=== PATIENT | female | born 1985 | race Caucasian/White ===

== ENCOUNTER 2021-09-30 08:51 | Emergency (ER) | payer SELFPAY ==
[~2021-09-30] VITALS: Ht 154.9 cm; Wt 75.0 kg
[2021-09-30 09:05] VITALS: BP 118/82
[2021-09-30] MEDS ORDERED: IV RINGERS SOLUTION,LACTATED 1,000 ML IV ONE (09:45)
--- NOTE | 2021-09-30 09:47 | PHYS DOC ---
Past History Past Surgical History: , Hysterectomy General Adult EDM: Chief Complaint: SYNCOPE HPI: HPI: Patient is a 36-year-old female coming in for diarrhea x6 days. Patient states that she has few episodes of vomiting when it first started but has been having watery diarrhea throughout the day and decreased p.o. intake. Patient states she has passed out several times. Was at work today and states she felt like she was about to pass out. Patient does states she has passed out and fallen. Denies any known head injuries. Patient denies any recent travel, raw undercooked food, sick contacts, or antibiotic use. Review of Systems: Review of Systems: All other systems within normal limits except for as noted in the HPI Current Medications: Current Meds: Current Medications Medications (Trade) Dose Ordered Sig/Jovanni Start Time Stop Time Status Last Admin Dose Admin Lactated Ringer's 1,000 ml @ 1,000 mls/hr 1X ONCE 09/30/21 09:45 09/30/21 10:44 UNV Allergies: Allergies: Allergies Coded Allergies Type Severity Reaction Last Updated Verified iodine Allergy Unknown Swelling 09/30/21 Yes Physical Exam: PE: Constitutional: Well developed, well nourished, no acute distress, non-toxic appearance. [] HENT: Normocephalic, atraumatic, bilateral external ears normal, nose normal. [] Eyes: PERRLA, conjunctiva normal, no discharge. [] Neck: No rigidity, supple, no stridor. [] Cardiovascular: Regular rate and rhythm, brisk cap refill [] Lungs & Thorax: Non labored symmetric respirations, no tachypnea or respiratory distress [] Abdomen: Soft, nondistended, no tenderness palpation. Skin: Warm, dry, no erythema, no rash. [] Back: Unremarkable Extremities: No deformities, range of motion grossly intact, no lower extremity edema [] Neurologic: Alert and oriented X 3, no focal deficits noted. [] Psychologic: Affect normal, judgement normal, mood normal. [] Current Patient Data: Vital Signs: Vital Signs Date Time Temp Pulse Resp B/P (MAP) Pulse Ox O2 Delivery O2 Flow Rate FiO2 09/30/21 09:05 98.0 16 118/82 (94) 97 Room Air EKG: EKG: Sinus rhythm with left axis deviation. Lateral T wave flattening, no STEMI [] Radiology/Procedures: Radiology/Procedures: [][address] [address] IMAGING REPORT Signed PATIENT: EMY SAMUEL NACCOUNT: [id number] : 1985 LOCATION: ER AGE: 36 SEX: F EXAM STATUS: REG ER ORD. PHYSICIAN: EMY PATTERSON MD REASON: syncope PROCEDURE: CT HEAD WO CONTRAST CT brain without contrast. HISTORY: Syncope CT scan of the brain was done without contrast. Sinuses are clear. There is no skull fracture. Mastoids are normally aerated. There is no intracranial hemorrhage or subdural hematoma. There is no mass effect or shift of the midline. Ventricles are normal in size. An acute CVA is not identified. IMPRESSION: 1. No intracranial hemorrhage or acute finding noted. PQRS Compliance Statement: One or more of the following individualized dose reduction techniques were utilized for this examination: 1. Automated exposure control 2. Adjustment of the mA and/or kV according to patient size 3. Use of iterative reconstruction technique Electronically signed by: Kelvin Pearce MD (09/30/2021 10:35 AM) [id number] DICTATED AND SIGNED BY: KELVIN PEARCE MD DATE: 09/30/21 103 CC: EMY PATTERSON MD; PCP,NO ~ [address] [address] IMAGING REPORT Signed PATIENT: EMY SAMUEL NACCOUNT: [id number] : 1985 LOCATION: ER AGE: 36 SEX: F EXAM STATUS: REG ER ORD. PHYSICIAN: EMY PATTERSON MD REASON: syncope, diarrhea PROCEDURE: CT ABDOMEN PELVIS WO CONTRAST PQRS Compliance Statement: One or more of the following individualized dose reduction techniques were utilized for this examination: 1. Automated exposure control 2. Adjustment of the mA and/or kV according to patient size 3. Use of iterative reconstruction technique CT abdomen/pelvis without contrast 09/30/2021 10:30 AM INDICATION: Syncope, diarrhea COMPARISON: None available TECHNIQUE: Multiple axial CT images of the abdomen and pelvis were obtained without intravenous contrast. Coronal and sagittal reformats are provided. FINDINGS: Visualized portions of the lung bases are clear. Heart size is within normal limits. Evaluation of the solid abdominal viscera is limited by lack of intravenous contrast. No suspicious hepatic masses are identified. Diffuse hypoattenuation of the hepatic parenchyma suggestive of hepatic steatosis. Focal fatty sparing identified along the gallbladder fossa. Spleen, bilateral adrenal glands, and pancreas are normal in appearance. Gallbladder is present without adjacent inflammatory changes. The abdominal aorta is normal in course and caliber. There are no pathologically enlarged lymph nodes in the abdomen and pelvis. There is no abdominal free fluid. There is no free intraperitoneal air. The kidneys are relatively symmetric in appearance. There is no suspicious renal mass within the limitations of a noncontrast examination. There is no hydronephrosis. There are no calculi within the kidneys, ureters or urinary bladder. Small and large bowel are normal in caliber. There is no evidence for bowel obstruction. There are no pericolonic inflammatory changes. A normal, nondilated appendix is visualized without adjacent inflammatory changes. Uterus is normal by CT. Follicular changes are identified within the adnexa bilaterally. IMPRESSION: 1. Diffuse hepatic steatosis with focal fatty sparing along the gallbladder fossa. 2. No acute abnormality identified in abdomen and pelvis. 3. Follicular changes identified within the adnexa bilaterally. Electronically signed by: Jeff Pollack MD (09/30/2021 10:39 AM) [id number] DICTATED AND SIGNED BY: JEFF POLLACK MD DATE: 09/30/21 1036 CC: EMY PATTERSON MD; PCP,NO ~ Heart Score: C/O Chest Pain: No Risk Factors: Risk Factors: DM, Current or recent (<one month) smoker, HTN, HLP, family history of CAD, obesity. Risk Scores: Score 0 - 3: 2.5% MACE over next 6 weeks - Discharge Home Score 4 - 6: 20.3% MACE over next 6 weeks - Admit for Clinical Observation Score 7 - 10: 72.7% MACE over next 6 weeks - Early Invasive Strategies Course & Med Decision Making: Course & Med Decision Making Pertinent Labs and Imaging studies reviewed. (See chart for details) [] Dragon Disclaimer: Dragon Disclaimer: This electronic medical record was generated, in whole or in part, using a voice recognition dictation system. Departure Departure: Impression: Primary Impression: Diarrhea Disposition: HOME / SELF CARE / HOMELESS Condition: IMPROVED Referrals: PCP,SHAHRIAR (PCP) Patient Instructions: Diet for Diarrhea, Adult Additional Instructions: Follow-up with one of the primary care providers on the list provided for further evaluation of elevated blood sugar. Scripts Sulfamethoxazole/Trimethoprim (BACTRIM DS TABLET) 1 Each Tablet 1 TAB PO BID for antibiotic for 5 Days, #10 TAB 0 Refills Prov: EMY PATTERSON MD 09/30/21 EMY PATTERSON MD September 30, 2021 09:47
[2021-09-30 10:33] LABS: BASO % 1 % (0-3); EOS % 1 % (0-3); HEMATOCRIT 46.1 % (36.0-47.0); HEMOGLOBIN 15.8 g/dL (12.0-15.5); LYMPH # 1.8 x10^3/uL (1.0-4.8); LYMPH % 52 % (24-48); MEAN CORPUSCULAR HEMOGLOBIN 28 pg (25-35); MEAN CORPUSCULAR HGB CONC 34 g/dL (31-37); MEAN CORPUSCULAR VOLUME 82 fL (79-100); MONO # 0.4 x10^3/uL (0.0-1.1); MONO % 13 % (0-9); NEUT # 1.1 x10^3uL (1.8-7.7); NEUT % 34 % (31-73); PLATELET COUNT 136 x10^3/uL (140-400); RED BLOOD COUNT 5.61 x10^6/uL (3.50-5.40); RED CELL DISTRIBUTION WIDTH 12.8 % (11.5-14.5); WHITE BLOOD COUNT 3.4 x10^3/uL (4.0-11.0)
--- NOTE | 2021-09-30 10:37 | RAD ---
CT brain without contrast. HISTORY: Syncope CT scan of the brain was done without contrast. Sinuses are clear. There is no skull fracture. Mastoi ds are normally aerated. There is no intracranial hemorrhage or subdural hematoma. There is no mass e ffect or shift of the midline. Ventricles are normal in size. An acute CVA is not identified. IMPRESSION: 1. No intracranial hemorrhage or acute finding noted. PQRS Compliance Statement: One or more of the following individualized dose reduction techniques were utilized for this examinat ion: 1. Automated exposure control 2. Adjustment of the mA and/or kV according to patient size 3. Use of iterative reconstruction technique Electronically signed by: Kelvin Pearce MD (09/30/2021 10:35 AM) [id number]
--- NOTE | 2021-09-30 10:42 | RAD ---
PQRS Compliance Statement: One or more of the following individualized dose reduction techniques were utilized for this examinat ion: 1. Automated exposure control 2. Adjustment of the mA and/or kV according to patient size 3. Use of iterative reconstruction technique CT abdomen/pelvis without contrast 09/30/2021 10:30 AM INDICATION: Syncope, diarrhea COMPARISON: None available TECHNIQUE: Multiple axial CT images of the abdomen and pelvis were obtained without intravenous contr ast. Coronal and sagittal reformats are provided. FINDINGS: Visualized portions of the lung bases are clear. Heart size is within normal limits. Evaluation of the solid abdominal viscera is limited by lack of intravenous contrast. No suspicious hepatic masses are identified. Diffuse hypoattenuation of the hepatic parenchyma sugges tive of hepatic steatosis. Focal fatty sparing identified along the gallbladder fossa. Spleen, bilate ral adrenal glands, and pancreas are normal in appearance. Gallbladder is present without adjacent in flammatory changes. The abdominal aorta is normal in course and caliber. There are no pathologically enlarged lymph nodes in the abdomen and pelvis. There is no abdominal free fluid. There is no free intraperitoneal air. The kidneys are relatively symmetric in appearance. There is no suspicious renal mass within the limi tations of a noncontrast examination. There is no hydronephrosis. There are no calculi within the kid neys, ureters or urinary bladder. Small and large bowel are normal in caliber. There is no evidence for bowel obstruction. There are no pericolonic inflammatory changes. A normal, nondilated appendix is visualized without adjacent infla mmatory changes. Uterus is normal by CT. Follicular changes are identified within the adnexa bilaterally. IMPRESSION: 1. Diffuse hepatic steatosis with focal fatty sparing along the gallbladder fossa. 2. No acute abnormality identified in abdomen and pelvis. 3. Follicular changes identified within the adnexa bilaterally. Electronically signed by: Gloria Maradiaga MD (09/30/2021 10:39 AM) [id number]
[2021-09-30 10:43] LABS: ALBUMIN 2.8 g/dL (3.4-5.0); ALBUMIN/GLOBULIN RATIO 0.7 (1.0-1.7); CALCIUM 8.6 mg/dL (8.5-10.1); CREATININE 0.7 mg/dL (0.6-1.0); GFR 95.2; MAGNESIUM 1.8 mg/dL (1.8-2.4); PHOSPHORUS 3.1 mg/dL (2.6-4.7); TOTAL BILIRUBIN 0.4 mg/dL (0.2-1.0); TOTAL PROTEIN 6.8 g/dL (6.4-8.2)
[2021-09-30] MEDS ORDERED: IV NORMAL SALINE 1,000ML 1,000 ML IV ONE (11:45)
[2021-09-30] MEDS ORDERED: SULF1TAB24 PO (13:14)
--- NOTE | 2021-09-30 23:27 | EKG ---
[address] [address] Test Date: 2021-09-30 Test Time: 09:51:38 Pat Name: EMY BOWMANERAS Department: Room: Gender: F [employer]: : 1985 Requested By: EMY PATTERSON Order Number: [id number] Reading MD: Zana Samaniego Measurements Intervals [place] Rate: 81 P: 26 TN: 170 QRS: -11 QRSD: 88 T: -9 QT: 422 QTc: 496 Interpretive Statements SINUS RHYTHM LEFTWARD AXIS PROLONGED QT Electronically Signed On 10-02-2021 17:18:25 CDT by Zana Samaniego
== END 2021-09-30 13:36 | disposition home or self-care (01) ==
LOC: ER 08:51
DX: R19.7 Diarrhea, unspecified (principal); R11.10 Vomiting, unspecified; Z98.890 Other specified postprocedural states; Z90.710 Acquired absence of both cervix and uterus; Z88.8 Allergy status to other drugs, medicaments and biological substances
CPT/HCPCS: 36415; 70450; 74176; 80053; 83690; 83735; 84100; 85025; 93005; 96360; 99285; J7120